=== PATIENT | female | born 1955 | race Caucasian/White ===

== ENCOUNTER → 2017-03-28 | Outpatient (CLI) | payer OTHER ==
--- NOTE | 2017-03-28 13:37 | MM ---
Reason for exam: screening (asymptomatic). Last mammogram was performed 4 years and 2 months ago. History: Patient is postmenopausal and is nulliparous. Family history of breast cancer in maternal cousin at age 42. Taking estrogen for 5 years. Physical Findings: A clinical breast exam by your physician is recommended on an annual basis and results should be correlated with mammographic findings. MG 3D Screening Mammo W/Cad Bilateral CC and MLO view(s) were taken. Prior study comparison: January 13, 2013, [facility] DIGITAL RIGHT MAMMOGRAM w/CAD. January 08, 2013, bilateral digital screening mammo w/CAD. The breast tissue is heterogeneously dense. This may lower the sensitivity of mammography. Finding: There are typically benign calcifications in both breasts. No significant changes in finding since January 13, 2013 and January 08, 2013. ASSESSMENT: Benign, BI-RAD 2 RECOMMENDATION: Routine screening mammogram of both breasts in 1 year.
== END | disposition home or self-care (01) ==
LOC: RADMAMWWP 09:45
PROVIDERS: ATTEND Obstetrics & Gynecology
DX: Z12.31 Encounter for screening mammogram for malignant neoplasm of breast (principal)
CPT/HCPCS: 77063; G0202

== ENCOUNTER → 2018-04-09 | Outpatient (CLI) | payer OTHER ==
--- NOTE | 2018-04-17 10:47 | MM ---
Reason for exam: screening (asymptomatic). Last mammogram was performed 1 year ago. History: Patient is postmenopausal and is nulliparous. Family history of breast cancer in maternal cousin at age 42. Taking estrogen for 5 years. Physical Findings: A clinical breast exam by your physician is recommended on an annual basis and results should be correlated with mammographic findings. MG 3D Screening Mammo W/Cad Bilateral CC and MLO view(s) were taken. Prior study comparison: March 28, 2017, bilateral MG 3d screening mammo w/cad. January 13, 2013, [facility] DIGITAL RIGHT MAMMOGRAM w/CAD. The breast tissue is heterogeneously dense. This may lower the sensitivity of mammography. There is a new right upper outer quadrant middle depth 6mm mass, low density. No suspicious abnormality on the left breast. ASSESSMENT: Incomplete: need additional imaging evaluation, BI-RAD 0 RECOMMENDATION: Special view mammogram of the right breast. If lesion persists on supplemental views, image directed ultrasound is recommended. [facility] will attempt to contact patient to return for supplemental views and ultrasound if indicated.
== END | disposition home or self-care (01) ==
LOC: RADMAMWWP 14:11
PROVIDERS: ATTEND Obstetrics & Gynecology
DX: Z12.31 Encounter for screening mammogram for malignant neoplasm of breast (principal)
CPT/HCPCS: 77063; 77067

== ENCOUNTER → 2018-04-22 | Outpatient (CLI) | payer OTHER ==
--- NOTE | 2018-04-23 09:07 | MM ---
Reason for exam: additional evaluation requested from abnormal screening. Last mammogram was performed less than 1 month ago. History: Patient is postmenopausal and is nulliparous. Family history of breast cancer in maternal cousin at age 42. Taking estrogen for 5 years. Physical Findings: Nurse did not find any significant physical abnormalities on exam. MG 3D Work Up W/Cad RT CC, MLO, and LM view(s) were taken of the right breast. Prior study comparison: April 09, 2018, bilateral MG 3d screening mammo w/cad. March 28, 2017, bilateral MG 3d screening mammo w/cad. January 13, 2013, [facility] DIGITAL RIGHT MAMMOGRAM w/CAD. The breast tissue is heterogeneously dense. This may lower the sensitivity of mammography. Finding: There is a 8 mm circumscribed oval mass in the upper outer quadrant, anterior middle position of the right breast persists on additional views. New finding since April 09, 2018, March 28, 2017, and January 13, 2013. These results were verbally communicated with the patient and result sheet given to the patient on 04/22/18. ASSESSMENT: Incomplete: need additional imaging evaluation, BI-RAD 0 RECOMMENDATION: Ultrasound of the right breast.
--- NOTE | 2018-04-23 09:09 | USB ---
Reason for exam: additional evaluation requested from abnormal screening. History: Patient is postmenopausal and is nulliparous. Family history of breast cancer in maternal cousin at age 42. Taking estrogen for 5 years. US Breast Workup Limited RT Right limited breast ultrasound including focal area of concern, retroareolar and axilla demonstrates a 0.7 x 0.6 x 0.3cm oval, cystic lesion at 9 o'clock. These results were verbally communicated with the patient and result sheet given to the patient on 04/22/18. ASSESSMENT: Benign, BI-RAD 2 RECOMMENDATION: Return to routine screening mammogram schedule for both breasts.
== END ==
LOC: RADMAMWWP 15:27
PROVIDERS: ATTEND Obstetrics & Gynecology
DX: R92.8 Other abnormal and inconclusive findings on diagnostic imaging of breast (principal)
CPT/HCPCS: 77061; 77065

== ENCOUNTER → 2019-04-22 | Outpatient (CLI) | payer OTHER ==
--- NOTE | 2019-04-22 11:05 | BD ---
EXAMINATION TYPE: Axial Bone Density DATE OF EXAM: 04/22/2019 COMPARISON: NONE CLINICAL HISTORY: Z 13.820 Height: 68.5 Weight: 179.3 FRAX RISK QUESTIONS: Alcohol (3 or more units per day): no Family History (Parent hip fracture): no Glucocorticoids (More than 3mos): no (Ex: prednisone, prednisolone, methylprednisolone, dexamethasone, and hydrocortisone). History of Fracture in Adulthood: no Secondary Osteoporosis: 1. Type 1 Diabetes: no 2. Hyperthyroidism: no 3. Menopause before 45: no 4. Malnutrition: no 5. Chronic liver disease: no Rheumatoid Arthritis: no Current Tobacco Use: no RISK FACTORS HISTORY OF: Family History of Osteoporosis: no Active: yes Diet low in dairy products/other sources of calcium: no Postmenopausal woman: age 50 MEDICATIONS: x2 blood pressure meds, lipitor Additional History: EXAM MEASUREMENTS: Bone mineral densitometry was performed using the [employer]. Bone mineral density as measured about the Lumbar spine is: ----- L1-L4(G/cm2): 1.165 T Score Values are as follows: ----- L2: 0.2 ----- L3: 0.2 ----- L4: -0.3 ----- L1-L4: -0.1 Bone mineral density : baseline Bone mineral density about the R hip (g/cm2): 1.039 Bone mineral density about the L hip (g/cm2): 1.057 T Score values are as follows: -----R Neck: 0.0 -----L Neck: 0.1 -----R Total: 0.4 -----L Total: 0.4 Bone mineral density : baseline IMPRESSION: Normal (Values between +1 and -1 indicate normal bone mass). Consider repeating this study in 5 year s or sooner if there is some new clinical indication. NOTE: T-SCORE=SD OF THE YOUNG ADULT MEAN.
--- NOTE | 2019-04-23 08:04 | MM ---
Reason for exam: screening (asymptomatic). Last mammogram was performed 1 year ago. History: Patient is postmenopausal and is nulliparous. Family history of breast cancer in maternal cousin at age 42. Taking estrogen for 5 years. Physical Findings: A clinical breast exam by your physician is recommended on an annual basis and results should be correlated with mammographic findings. MG 3D Screening Mammo W/Cad Bilateral CC and MLO view(s) were taken. Prior study comparison: April 22, 2018, right breast MG 3d work up w/cad RT. April 09, 2018, bilateral MG 3d screening mammo w/cad. The breast tissue is heterogeneously dense. This may lower the sensitivity of mammography. There is a stable right upper outer quadrant middle depth mass. No suspicious abnormality. No significant changes when compared with prior studies. ASSESSMENT: Benign, BI-RAD 2 RECOMMENDATION: Routine screening mammogram of both breasts in 1 year.
== END | disposition home or self-care (01) ==
LOC: RADMAMWWP 08:43
PROVIDERS: ATTEND Obstetrics & Gynecology
DX: Z12.31 Encounter for screening mammogram for malignant neoplasm of breast (principal); Z13.820 Encounter for screening for osteoporosis
CPT/HCPCS: 77063; 77067; 77080

== ENCOUNTER → 2019-08-14 | Outpatient (CLI) | payer OTHER ==
--- NOTE | 2019-08-14 15:54 | XR ---
EXAMINATION TYPE: XR knee complete LT DATE OF EXAM: 08/14/2019 COMPARISON: None HISTORY: Pain TECHNIQUE: 3 view left knee FINDINGS: No acute displaced fractures are evident. Soft tissues appear normal. No joint effusion is evident. A small medial femoral condylar spurs present. IMPRESSION: 1. No acute osseous abnormality. 2. Minimal medial compartment degenerative changes
== END | disposition home or self-care (01) ==
LOC: RADXRWHC 12:28
PROVIDERS: ATTEND Family Medicine
DX: M17.12 Unilateral primary osteoarthritis, left knee (principal)

== ENCOUNTER → 2019-11-06 | Outpatient (CLI) | payer OTHER ==
--- NOTE | 2019-11-06 14:15 | XR ---
EXAMINATION TYPE: XR chest 2V DATE OF EXAM: 11/06/2019 COMPARISON: None INDICATION: Cough TECHNIQUE: Frontal and lateral views of the chest are obtained. FINDINGS: The heart size is normal. The pulmonary vasculature is normal. The lungs are clear. IMPRESSION: 1. No acute pulmonary process.
== END | disposition home or self-care (01) ==
LOC: RADXRMAIN 13:58
PROVIDERS: ATTEND Nurse Practitioner Family
DX: R05 Cough (principal); R06.2 Wheezing; R09.89 Other specified symptoms and signs involving the circulatory and respiratory systems
CPT/HCPCS: 71046

== ENCOUNTER → 2020-02-12 | Outpatient (CLI) | payer OTHER | END | disposition home or self-care (01) | LOC: LABWHC1 09:39 | PROVIDERS: ATTEND Family Medicine | DX: R05 Cough (principal) | CPT/HCPCS: 87635 ==

== ENCOUNTER → 2020-06-13 | Outpatient (CLI) | payer OTHER ==
--- NOTE | 2020-06-13 15:29 | MR ---
EXAMINATION TYPE: MR knee LT wo con DATE OF EXAM: 06/13/2020 COMPARISON: Plain film 05/06/2020 HISTORY: Left knee pain TECHNIQUE: Multiplanar, multisequence imaging of the left knee is performed without IV contrast. FINDINGS: MEDIAL MENISCUS: Anterior and posterior horns are intact without tear. LATERAL MENISCUS: Anterior and posterior horns are intact without tear. CRUCIATE LIGAMENTS: The anterior and posterior cruciate ligaments are intact and unremarkable. COLLATERAL LIGAMENTS: The medial collateral ligament and lateral collateral ligament complex are inta ct and unremarkable. EXTENSOR MECHANISM: Visualized quadriceps and patellar tendons are intact. EFFUSION: Minimal joint effusion POPLITEAL CYST: No popliteal/martinez cyst. TRICOMPARTMENT SPACES: Joint space loss present in the medial compartment. CARTILAGE: Grade IV chondromalacia present in the medial compartment. Within the posterior lateral co mpartment suspect there is grade 3 to grade IV chondromalacia. Grade IV chondromalacia present at the posterior patella. BONE MARROW SIGNAL: Subchondral geode formation present in the proximal tibia posteriorly and medial femoral condyle, reactive marrow signal changes are also present in the medial femoral condyle, proxi mal tibia posteriorly and posterior patella OTHER: Subcutaneous edema changes are present anterior to the patellar tendon. Marginal spurring pre sent in the medial lateral compartments, patellofemoral joint IMPRESSION: Osteoarthritis. Joint effusion.
== END | disposition home or self-care (01) ==
LOC: RADMRIMAIN 10:20
PROVIDERS: ATTEND Orthopaedic Surgery
DX: M17.12 Unilateral primary osteoarthritis, left knee (principal)

== ENCOUNTER → 2020-08-04 | Outpatient (CLI) | payer OTHER ==
[2020-08-04 12:27] LABS: Potassium 4.6 mmol/L (3.5-5.1)
== END | disposition home or self-care (01) ==
LOC: LABPAT 11:15
PROVIDERS: ATTEND Orthopaedic Surgery
DX: M23.92 Unspecified internal derangement of left knee (principal)
CPT/HCPCS: 36415; 80051; 93005

== ENCOUNTER 2020-09-01 11:14 | Day surgery (SDC) | payer OTHER ==
[2020-08-30 14:28] VITALS: BMI 25.1
--- NOTE | 2020-08-31 20:13 | HP ---
HISTORY AND PHYSICAL DATE OF SURGERY: 09/01/2020 Cindy Núñez is a 65-year-old patient seen with progressive left knee pain. We discussed options. She elected to proceed with left knee arthroscopy. Consent was obtained. PAST MEDICAL HISTORY: Hypertension, hyperlipidemia, osteoarthritis. PAST SURGICAL HISTORY: Oophorectomy. DAILY MEDICATIONS: Prilosec, Ambien, Lipitor, Lotrel. ALLERGIES: SULFA. SOCIAL HISTORY: Denies tobacco use. PHYSICAL EXAMINATION: Evaluation of the left knee range of motion is 0-130. Mild effusion. Tenderness medial joint line. Positive medial Luly's. Ligaments stable. Crepitus medial patellofemoral compartments on range of motion. Hip rotation without pain. Distal neurovascular exam intact. RADIOGRAPHS: Left knee radiographs reveal osteoarthritic changes. Left knee MRI revealed osteoarthritic changes and joint effusion. IMPRESSION: 1. Internal derangement of the left knee with meniscal tear versus osteochondral tear. 2. Left knee osteoarthritis. 3. Hyperlipidemia. 4. Hypertension. PLAN: Left knee arthroscopy with partial meniscectomy versus chondroplasty and debridement. MMODL / IJN: [id number] /
[~2020-09-01 11:14] MED LIST: DEXAMETHASONE SOD PHOSPHATE 4 MG/ML 1 ML VIAL IV ONE; LACTATED RINGERS 1,000 ML IV SCH; LIDOCAINE 1% (10MG/ML) FOR IV START INTRADERMA PRN; MIDAZOLAM 2 MG/2 ML VIAL IV PRN; ONDANSETRON 4 MG/2 ML VIAL IVP ONE
[2020-09-01] MEDS ORDERED: KETOROLAC 15 MG/ML 1 ML VIAL ONE (12:45)
[2020-09-01] MEDS ORDERED: PROPOFOL 10 MG/ML 20 ML VIAL IV ONE (12:45)
[2020-09-01] MEDS ORDERED: LIDOCAINE 1% INJ 10MG/ML (20 ML MDV) ONE (12:45)
[2020-09-01] MEDS ORDERED: fentaNYL (PF) 50 MCG/ML 2 ML AMP ONE (12:45)
[2020-09-01] MEDS ORDERED: BUPIVACAINE (PF) 0.25% 30 ML VIAL INTRAARTIC ONE (12:52)
--- NOTE | 2020-09-01 13:31 | P.OP ---
Date of Procedure: 09/01/20 Preoperative Diagnosis: Internal derangement left knee Postoperative Diagnosis: 1. Tear medial meniscus left knee 2. Grade 2/3 chondromalacia medial femoral condyle left knee 3. Grade 2/3 chondromalacia patella left knee 4. Reactive synovitis medial, lateral and suprapatellar compartments left knee Procedure(s) Performed: 1. Arthroscopic partial medial meniscectomy left knee 2. Arthroscopic chondroplasty medial femoral condyle left knee 3. Arthroscopic chondroplasty patella left knee 4. Arthroscopic partial synovectomy medial, lateral and suprapatellar compartments left knee Anesthesia: DUSTINA, local Surgeon: Hima Meza Estimated Blood Loss (ml): 7 Pathology: none sent Condition: stable Disposition: PACU Indications for Procedure: 65-year-old patient seen with progressive left knee pain. After treatment options were discussed, she elected to proceed with arthroscopy. Operative Findings: See description of procedure Description of Procedure: Patient was taken to the operative suite. Patient underwent a general anesthetic by the department of anesthesia. Patient was given preoperative antibiotics. The left lower extremity was placed in a well-padded arthroscopic leg greenwood. The left leg was prepped and draped in the normal sterile orthopedic fashion. A lateral parapatellar and suprapatellar incision was made. Trochars were inserted. Arthroscopy was initiated. Suprapatellar pouch reve aled diffuse thick reactive synovitis. The patellofemoral joint appeared to articulate congruently. There was grade 2/3 chondromalacia of the patella with some osteochondral flap tears present. The scope was guided into the medial gutter. No loose bodies or plica were identified. The scope was then guided into the medial compartment. A medial parapatellar incision was made. Trocar inserted followed by probe. There was a radial tear posterior horn medial meniscus. There were grade 2/3 chondromalacia changes of the medial femoral condyle with some osteochondral flap tears present. There was thick reactive synovitis anteriorly. I performed a partial medial meniscectomy getting down to stable meniscal tissue. I performed a chondroplasty of the medial femoral condyle getting down to stable osteochondral tissue. I performed a partial synovectomy decompressing the reactive synovitis. The residual meniscus was stable. The residual osteochondral surface of the medial femoral condyle was stable. There was good decompression of the synovitis. Scope and probe were then guided into the intercondylar notch. Cruciates were identified, probed and found to be stable. The scope and probe were then guided into lateral compartment. To meniscus was probed and found to be stable. There was no significant chondromalacia involving lateral compartment. There was thick reactive synovitis anteriorly. I introduced a motorized shaver and performed a partial synovectomy. There was good decompression of the synovitis. The scope was in guided back into the suprapatellar compartment. I introduced a motorized shaver into the suprapatellar compartment. I debrided some piecemeal fragments of meniscus I encountered. I performed a chondroplasty of the patella gained down to stable osteochondral tissue. I performed a partial synovectomy decompressing reactive synovitis. The shaver was removed. The residual osteochondral surface of patella was stable. There was good decompression of synovitis. I took one more look on the entire knee, no residual debris. Instruments were now removed from the joint. The joint was infiltrated with .25% Marcaine. Steri-Strips were applied to the portal sites. Sterile dressings were applied. The patient was placed into a COLLEEN hose. No tourniquet was utilized. The patient was awakened, transferred to a bed and taken to recovery stable satisfactory condition.
[2020-09-01 13:38] VITALS: TEMP 97.1
[2020-09-01] MEDS: HYDROmorphone 0.5 MG/0.5 ML SYRINGE IVP PRN ×2 (13:41→13:54)
[2020-09-01] MEDS ORDERED: LACTATED RINGERS 1,000 ML IV ONE (13:44)
[2020-09-01 14:17] VITALS: RESP 16
[2020-09-01 15:07] VITALS: BP 139/86; PULSE 78
== END 2020-09-01 15:30 | disposition home or self-care (01) ==
LOC: OR 11:14
PROVIDERS: ATTEND Orthopaedic Surgery
DX: M23.204 Derangement of unspecified medial meniscus due to old tear or injury, left knee (principal); M22.42 Chondromalacia patellae, left knee; M65.862 Other synovitis and tenosynovitis, left lower leg; K21.9 Gastro-esophageal reflux disease without esophagitis; I10 Essential (primary) hypertension; E78.5 Hyperlipidemia, unspecified; M19.90 Unspecified osteoarthritis, unspecified site; Z79.899 Other long term (current) drug therapy; Z88.2 Allergy status to sulfonamides; Z98.890 Other specified postprocedural states
CPT/HCPCS: 29881; J2250; J1100; J2405; J2001; J3010; J1885; J2704; J1170

== ENCOUNTER → 2021-06-06 | Outpatient (CLI) | payer OTHER ==
--- NOTE | 2021-06-08 09:14 | MM ---
Reason for exam: screening (asymptomatic). Last mammogram was performed 1 year and 1 month ago. History: Patient is postmenopausal and is nulliparous. Family history of breast cancer in maternal cousin at age 42. Taking estrogen for 5 years. Physical Findings: A clinical breast exam by your physician is recommended on an annual basis and results should be correlated with mammographic findings. MG 3D Screening Mammo W/Cad Bilateral CC and MLO view(s) were taken. Prior study comparison: May 10, 2020, bilateral MG 3d screening mammo w/cad. April 22, 2019, bilateral MG 3d screening mammo w/cad. The breast tissue is heterogeneously dense. This may lower the sensitivity of mammography. No significant changes when compared with prior studies. ASSESSMENT: Negative, BI-RAD 1 RECOMMENDATION: Routine screening mammogram of the right breast in 1 year.
== END | disposition home or self-care (01) ==
LOC: RADMAMWWP 13:07
PROVIDERS: ATTEND Obstetrics & Gynecology
DX: Z12.31 Encounter for screening mammogram for malignant neoplasm of breast (principal); Z78.0 Asymptomatic menopausal state; Z80.3 Family history of malignant neoplasm of breast
CPT/HCPCS: 77063; 77067

== ENCOUNTER → 2022-03-14 | Outpatient (CLI) | payer MEDICARE, BC ==
--- NOTE | 2022-03-14 10:34 | XR ---
EXAMINATION TYPE: XR forearm LT DATE OF EXAM: 03/14/2022 COMPARISON: None HISTORY: Calcification left forearm, bump on forearm for several months TECHNIQUE: 2 view left forearm FINDINGS: No acute osseous abnormality is evident. No acute fractures are evident. There is a soft tissue swelling over the proximal forearm on the lateral projection. Note is made of advanced degenerative change at the carpal metacarpal junction of the thumb. IMPRESSION: 1. Minimal soft tissue swelling along the dorsal proximal forearm lateral projection. 2. No acute osseous abnormality.
== END | disposition home or self-care (01) ==
LOC: RADXRMAIN 09:53
PROVIDERS: ATTEND Family Medicine
DX: M79.89 Other specified soft tissue disorders (principal)

== ENCOUNTER → 2022-06-20 | Outpatient (CLI) | payer MEDICARE, BC ==
--- NOTE | 2022-06-29 09:52 | MM ---
Reason for Exam: Screening (asymptomatic). Last mammogram was performed 1 year(s) and 1 month(s) ago. Patient History: Menarche at age 16. Patient has no children. Left ovary removed at age 50. Right ovary removed at age 50. Postmenopausal. Patient used Estrogen for 5 years. Maternal cousin had breast cancer, age 42. Risk Values: Marissa 5 year model risk: 1.7%. NCI Lifetime model risk: 6.3%. Prior Study Comparison: 04/22/2019 Bilateral Screening Mammogram, [facility]. 05/10/2020 Bilateral Screening Mammogram, [facility]. 06/06/2021 Bilateral Screening Mammogram, [facility]. Tissue Density: The breast tissue is heterogeneously dense. This may lower the sensitivity of mammography. Findings: Analyzed By CAD. There is no suspicious group of microcalcifications or new suspicious mass in either breast. Overall Assessment: Negative, BI-RAD 1 Management: Screening Mammogram of both breasts in 1 year. A clinical breast exam by your physician is recommended on an annual basis and results should be correlated with mammographic findings. Electronically signed and approved by: Alex Kendall M.D. Radiologis
== END | disposition home or self-care (01) ==
LOC: RADMAMWWP 10:06
PROVIDERS: ATTEND Family Medicine
DX: Z12.31 Encounter for screening mammogram for malignant neoplasm of breast (principal); Z78.0 Asymptomatic menopausal state; Z80.3 Family history of malignant neoplasm of breast
CPT/HCPCS: 77063; 77067

== ENCOUNTER 2022-09-07 11:49 | Emergency (ER) | payer MEDICARE, BC ==
[2022-09-07 12:34] VITALS: BP 156/97; PULSE 80; RESP 16; TEMP 98.2
--- NOTE | 2022-09-07 12:57 | XR ---
EXAMINATION TYPE: XR chest 2V DATE OF EXAM: 09/07/2022 COMPARISON: 11/06/2019 HISTORY: 67-year-old female with cough TECHNIQUE: PA and lateral views FINDINGS: The cardiomediastinal silhouette, aorta, and pulmonary vasculature are within normal limits. Lungs an d pleural spaces are clear. IMPRESSION: No acute cardiopulmonary process.
--- NOTE | 2022-09-07 13:44 | ED ---
URI HPI - General Chief Complaint: Upper Respiratory Infection Stated Complaint: Congestion,wants Chest Xray Time Seen by Provider: 09/07/22 13:26 Source: patient Mode of arrival: ambulatory Limitations: no limitations - History of Present Illness Initial Comments: Patient is a 67-year-old female presenting with chief complaint of cough. Patient has had a productive cough for several weeks. Patient was initially being treated with Z-Uzair, she was recently switched to Levaquin by her PCP. States that cough wakes her up at night. She was having congestion and sinus pressure that has since dissipated. No difficulty breathing or chest pain. No difficulty swallowing. No sore throat. No nausea, vomiting, abdominal pain. No palpitations or weakness. No dizziness or lightheadedness. - Related Data Home Medications Medication Instructions Recorded Confirmed Cranberry Conc/C/Bacill Coag 1 each PO DAILY 02/15/15 09/01/20 [Cranberry Tablet] LORazepam [Ativan] 0.5 mg PO DAILY PRN 02/15/15 09/01/20 Multivitamins, Thera [Theragran] 1 each PO DAILY 02/15/15 09/01/20 Omeprazole [PriLOSEC] 20 mg PO AC-BRKFST 02/15/15 09/01/20 Propranolol LA [Inderal LA] 60 mg PO DAILY 02/15/15 09/01/20 Zolpidem Tartrate [Ambien Cr] 12.5 mg PO HS PRN 02/15/15 09/01/20 Atorvastatin [Lipitor] 80 mg PO DAILY 08/30/20 09/01/20 Calcium Carbonate/Vitamin D3 1 each PO BID 08/30/20 09/01/20 [Calcium 600 mg-Vit D3 10Mcg (400 Unit)] Grapeseed 1 dose PO DAILY 08/30/20 09/01/20 [place]-3/Dha/Epa/Fish Oil [Fish Oil 1 each PO BID 08/30/20 09/01/20 500 mg Softgel] Ubidecarenone [Co Q-10] 100 mg PO DAILY 08/30/20 09/01/20 amLODIPine BESYLATE/BENAZEPRIL 1 cap PO DAILY 08/30/20 09/01/20 [Lotrel 10-20 MG] Previous Rx's Medication Instructions Recorded Cephalexin [Keflex] 500 mg PO Q12HR 10 Days #30 cap 09/01/20 Hydrocodone/Acetaminophen [[place] 1 each PO Q6HR PRN #12 tab 09/01/20 5-325] Albuterol Sulfate [Albuterol 1 puff PO Q4-6H PRN #8.5 gm 09/07/22 Sulfate Hfa] Allergies Allergy/AdvReac Type Severity Reaction Status Date / Time Sulfa (Sulfonamide Allergy Unknown Verified 09/07/22 12:31 Antibiotics) Review of Systems ROS Statement: Those systems with pertinent positive or pertinent negative responses have been documented in the HPI. ROS Other: All systems not noted in ROS Statement are negative. Past Medical History Past Medical History: GERD/Reflux, Hypertension Additional Past Medical History / Comment(s): "hx pounding heart beat", History of Any Multi-Drug Resistant Organisms: None Reported Past Surgical History: Tonsillectomy Additional Past Surgical History / Comment(s): oophorectomy Past Anesthesia/Blood Transfusion Reactions: No Reported Reaction Past Psychological History: No Psychological Hx Reported Past Alcohol Use History: Occasional Past Drug Use History: None Reported - Past Family History Mother Family Medical History: No Reported History General Exam Limitations: no limitations General appearance: alert, in no apparent distress Head exam: Present: atraumatic, normocephalic, normal inspection Eye exam: Present: normal appearance Neck exam: Present: normal inspection Respiratory exam: Present: normal lung sounds bilaterally. Absent: respiratory distress, wheezes, rales, rhonchi, stridor Cardiovascular Exam: Present: regular rate, normal rhythm, normal heart sounds. Absent: systolic murmur, diastolic murmur, rubs, gallop, clicks Neurological exam: Present: alert, oriented X3, CN II-XII intact Psychiatric exam: Present: normal affect, normal mood Skin exam: Present: warm, dry, intact, normal color. Absent: rash Course Vital Signs 09/07/22 12:31 Temperature 98.2 F Pulse Rate 80 Respiratory 16 Rate Blood Pressure 156/97 O2 Sat by Pulse 98 Oximetry Medical Decision Making - Medical Decision Making Patient is a 67-year-old female presenting with chief complaint of cough. Patient has had a cough for several weeks, she was treated with Z-Uzair and then was switched over to Levaquin by her PCP. She is concerned that the cough is not going away and wants a chest x-ray to rule out pneumonia. On examination heart and lungs are clear to auscultation. Patient is area adequately coughing, breathing is nonlabored. Chest x-ray shows no acute process. Patient is offered swabs for influenza and Covid, due to the length of her symptoms she is not concerned for these processes at this time. Patient is prescribed albuterol inhaler for her symptoms. Continue taking medication as prescribed by your PCP. Follow-up with PCP. Report back to ER with any new or worsening symptoms. Discussed return parameters and answered all questions. Patient conveyed verbal understanding and agreed to the plan. I discussed this case in detail with my attending Dr. Thomas Disposition Clinical Impression: Bronchitis Disposition: HOME SELF-CARE Condition: Good Instructions (If sedation given, give patient instructions): Acute Bronchitis (ED) Additional Instructions: Follow-up with PCP. Report back to ER with any new or worsening symptoms. Take medication as prescribed. Prescriptions: Albuterol Sulfate [Albuterol Sulfate Hfa] 1 puff PO Q4-6H PRN #8.5 gm PRN Reason: Cough Is patient prescribed a controlled substance at d/c from ED?: No Referrals: Angel Wasserman DO [Primary Care Provider] - 1-2 days Time of Disposition: 13:43
== END 2022-09-07 14:05 | disposition home or self-care (01) ==
LOC: EC 11:49
DX: J40 Bronchitis, not specified as acute or chronic (principal); K21.9 Gastro-esophageal reflux disease without esophagitis; I10 Essential (primary) hypertension; Z88.2 Allergy status to sulfonamides; Z79.899 Other long term (current) drug therapy
CPT/HCPCS: 71046; 99283

== ENCOUNTER → 2023-06-27 | Outpatient (CLI) | payer MEDICARE, BC ==
--- NOTE | 2023-06-28 08:58 | MM ---
Reason for Exam: Screening (asymptomatic). Last screening mammogram was performed 12 month(s) ago. Patient History: Menarche at age 16. Patient has no children. Left ovary removed at age 50. Right ovary removed at age 50. Postmenopausal. Patient used Estrogen for 5 years. Maternal cousin had breast cancer, age 42. Risk Values: Marissa 5 year model risk: 1.7%. NCI Lifetime model risk: 6.1%. Prior Study Comparison: 05/10/2020 Bilateral Screening Mammogram, [facility]. 06/06/2021 Bilateral Screening Mammogram, [facility]. 06/20/2022 Bilateral MG 3D screening mammo w/cad, [facility]. Tissue Density: The breast tissue is heterogeneously dense. This may lower the sensitivity of mammography. Findings: Analyzed By CAD. There is no suspicious group of microcalcifications or new suspicious mass in either breast. Overall Assessment: Benign, BI-RAD 2 Management: Screening Mammogram of both breasts in 1 year. . Patient should continue monthly self-breast exams. A clinical breast exam by your physician is recommended on an annual basis. This exam should not preclude additional follow-up of suspicious palpable abnormalities. Note on Marissa scores and lifetime risk: 1. A Marissa score greater than 3% is considered moderate risk. If this is the case, consider specialist referral to assess eligibility for a risk reducing agent. 2. If overall lifetime risk for the development of breast cancer is 20% or higher, the patient may qualify for future screening with alternating mammogram and breast MRI. Electronically signed and approved by: Alex Kendall M.D. Radiologis
== END | disposition home or self-care (01) ==
LOC: RADMAMWWP 09:27
PROVIDERS: ATTEND Family Medicine
DX: Z12.31 Encounter for screening mammogram for malignant neoplasm of breast (principal); Z78.0 Asymptomatic menopausal state; Z80.3 Family history of malignant neoplasm of breast
CPT/HCPCS: 77063; 77067

== ENCOUNTER → 2023-10-04 | Outpatient (CLI) | payer MEDICARE, BC ==
--- NOTE | 2023-10-04 11:52 | CT ---
EXAMINATION: CT ABDOMEN AND PELVIS WITHOUT IV CONTRAST DATE OF EXAMINATION: 11/04/2022. COMPARISON: None available. INDICATION: Pelvic pain and urinary tract infection. PROCEDURE: Axial CT of the abdomen and pelvis was performed with sagittal and coronal reformatted i mages without contrast enhancement. The exam is limited because some types of pathology may not be ad equately demonstrated due to lack of contrast enhancement. CT dose lowering techniques were used, to include: automated exposure control, adjustment for patient size, and/or use of iterative reconstruct ion. FINDINGS: LOWER CHEST : The visualized lung bases are clear. There are no pleural or pericardial effusions. ABDOMEN: Liver and Biliary system: Normal. Adrenal glands: Normal. Kidneys and ureters: There are no renal stones or hydronephrosis. No ureteral stones are present.. Spleen: Normal. Pancreas: Normal. Gallbladder: Normal. Lymph nodes, Peritoneum and mesentery: There is no mesenteric or retroperitoneal lymphadenopathy. Gastrointestinal tract: There are no dilated loops of bowel or free intraperitoneal air. . The appe ndix is normal. There is moderate to significant diffuse colonic diverticulosis without evidence of d iverticulitis. Aorta/IVC: There is mild vascular calcification throughout the abdominal aorta without evidence of aneurysmal dilation.. IVC normal. Abdominal wall: Normal. PELVIS: Fluid: There is no free fluid in the pelvis. Lymph Nodes: There is no pelvic or inguinal lymphadenopathy.. Urinary bladder: Normal. BONES: There are bilateral pars interarticular defects at L5 with no listhesis. There are no acute o sseous abnormalities. ADDITIONAL SIGNIFICANT FINDINGS: None. IMPRESSION: 1. No renal stones or hydronephrosis.. 2. No bowel obstruction or appendicitis. 3. Diverticulosis without evidence of diverticulitis.
== END | disposition home or self-care (01) ==
LOC: RADCTMAIN 11:13
PROVIDERS: ATTEND Family Medicine
DX: K57.30 Diverticulosis of large intestine without perforation or abscess without bleeding (principal); N20.0 Calculus of kidney; N39.0 Urinary tract infection, site not specified
CPT/HCPCS: 74176

== ENCOUNTER → 2024-07-10 | Outpatient (CLI) | payer MEDICARE ==
--- NOTE | 2024-07-12 21:50 | MM ---
Reason for Exam: Screening (asymptomatic). Last screening mammogram was performed 12 month(s) ago. Patient History: Menarche at age 16. Patient has no children. Left ovary removed at age 50. Right ovary removed at age 50. Postmenopausal. Patient used Estrogen for 5 years. Maternal cousin had breast cancer, age 42. Risk Values: Marissa 5 year model risk: 1.7%. NCI Lifetime model risk: 5.9%. Prior Study Comparison: 06/06/2021 Bilateral Screening Mammogram, [facility]. 06/20/2022 Bilateral MG 3D screening mammo w/cad, [facility]. 06/27/2023 Bilateral MG 3D screening mammo w/cad, [facility]. Tissue Density: The breasts are extremely dense, which lowers the sensitivity of mammography. Findings: Analyzed By CAD. The pattern is symmetrical. No significant interval change No suspicious groups of microcalcifications, spiculated or lobular masses, architectural distortion or other secondary signs of malignancy are mammographically apparent. Overall Assessment: Benign, BI-RAD 2 Management: Screening Mammogram of both breasts in 1 year. A negative mammogram report should not preclude additional follow up of suspicious palpable abnormalities. Patient should continue monthly self breast exam. A clinical breast exam by your physician is recommended on an annual basis and results should be correlated with mammographic findings. Note on Marissa scores and lifetime risk: 1. A Marissa score greater than 3% is considered moderate risk. If this is the case, consider specialist referral to assess eligibility for a risk reducing agent. 2. If overall lifetime risk for the development of breast cancer is 20% or higher, the patient may qualify for future screening with alternating mammogram and breast MRI. [facility], , 07/12/2024 9:47 PM. Electronically signed and approved by: Nikos Mack D.O. Radiologis
== END | disposition home or self-care (01) ==
LOC: RADMAMWWP 09:05
PROVIDERS: ATTEND Family Medicine
CPT/HCPCS: 77063; 77067

== ENCOUNTER → 2024-09-29 | Outpatient (CLI) | payer MEDICARE ==
--- NOTE | 2024-09-29 10:05 | CT ---
EXAMINATION TYPE: CT sinus wo con DATE OF EXAM: 09/29/2024 COMPARISON: CLINICAL INDICATION: Female, 69 years old with history of J32.9 chronic sinusitis; PHH, Chronic sinus itis TECHNIQUE: CT scan of the sinuses is performed without contrast, axial images are obtained, coronal r eformatted images are also reviewed. CT DLP: 630.[address] CTDI: mGy Automated exposure control for dose reduction was used. FINDINGS: The paranasal sinuses including the frontal, ethmoid, sphenoid, and maxillary sinuses bilaterally are well-aerated with a tiny mucous retention cyst or polyp in the left maxillary sinus and mild ethmoid mucosal thickening. No air-fluid levels. The ostiomeatal complex is patent bilaterally on the coron al images. Visualized portion of mastoid air cells show no abnormal opacification. The globes are intact bilate rally. Slight nasal septal deviation. There is a small epidermal soft tissue nodule overlying the le ft frontal soft tissues. IMPRESSION: 1. Mild chronic sinusitis. 2. Correlate for left frontal epidermal soft tissue nodule\Skin lesion measuring 1 cm. [facility], , 09/29/2024 10:02 AM
== END | disposition home or self-care (01) ==
LOC: RADCTMAIN 08:49
PROVIDERS: ATTEND Otolaryngology
DX: J32.9 Chronic sinusitis, unspecified (principal); L98.8 Other specified disorders of the skin and subcutaneous tissue
CPT/HCPCS: 70486

== ENCOUNTER 2025-04-10 08:03 | Emergency (ER) | payer MEDICARE ==
[2025-04-10 08:09] VITALS: BP 177/93; PULSE 102; RESP 18; TEMP 98.2
--- NOTE | 2025-04-10 08:53 | ED ---
Back Pain HPI - General Chief Complaint: Back Pain/Injury Stated Complaint: Back Pain/SOB Time Seen by Provider: 04/10/25 08:53 Source: patient, family, RN notes reviewed Limitations: no limitations - History of Present Illness Initial Comments: 70-year-old female presented the ER for evaluation of thoracic back pain. Patient reports on she started to experience a sore cramping left-sided subscapular back pain. She states it would frequently "spasm". She has been icing area along with taking [id number] ibuprofen and Tylenol without relief of her symptoms. Patient reports she was seen by PCP yesterday and diagnosed with a muscle spasm. Patient received IM steroids and prescribed prednisone and Flexeril. She states she has been taking these as prescribed and has no improvement of symptoms. Patient reports the pain has also spread to right back as well. She states the pain is limiting her ability to take a deep breath and she feels short of breath. Pain comes and "spasms" and is worse with movement. She denies any chest pain, dizziness, lightheadedness. Patient does admit to nausea but contributes this to the pain. She denies a history of PEs or DVTs. No blood thinner use. Patient denies smoking or recent travel. No calf pain or swelling. - Related Data Home Medications Medication Instructions Recorded Confirmed Cranberry Conc/C/Bacill Coag 1 each PO DAILY 02/15/15 09/01/20 [Cranberry Tablet] LORazepam [Ativan] 0.5 mg PO DAILY PRN 02/15/15 09/01/20 Multivitamins, Thera [Theragran] 1 each PO DAILY 02/15/15 09/01/20 Omeprazole [PriLOSEC] 20 mg PO AC-BRKFST 02/15/15 09/01/20 Propranolol LA [Inderal LA] 60 mg PO DAILY 02/15/15 09/01/20 Zolpidem Tartrate [Ambien Cr] 12.5 mg PO HS PRN 02/15/15 09/01/20 Atorvastatin [Lipitor] 80 mg PO DAILY 08/30/20 09/01/20 Calcium Carbonate/Vitamin D3 1 each PO BID 08/30/20 09/01/20 [Calcium 600 mg-Vit D3 10Mcg (400 Unit)] Grapeseed 1 dose PO DAILY 08/30/20 09/01/20 [place]-3/Dha/Epa/Fish Oil [Fish Oil 1 each PO BID 08/30/20 09/01/20 500 mg Softgel] Ubidecarenone [Co Q-10] 100 mg PO DAILY 08/30/20 09/01/20 amLODIPine BESYLATE/BENAZEPRIL 1 cap PO DAILY 08/30/20 09/01/20 [Lotrel 10-20 MG] Previous Rx's Medication Instructions Recorded Cephalexin [Keflex] 500 mg PO Q12HR 10 Days #30 cap 09/01/20 Hydrocodone/Acetaminophen [[place] 1 each PO Q6HR PRN #12 tab 09/01/20 5-325] Albuterol Sulfate [Albuterol 1 puff PO Q4-6H PRN #8.5 gm 09/07/22 Sulfate Hfa] Lidocaine 5% Patch [Lidoderm 5% 1 patch TOPICAL DAILY PRN #30 patch 04/10/25 Patch] Allergies Allergy/AdvReac Type Severity Reaction Status Date / Time Sulfa (Sulfonamide Allergy Unknown Verified 04/10/25 08:09 Antibiotics) Review of Systems ROS Statement: Those systems with pertinent positive or pertinent negative responses have been documented in the HPI. ROS Other: All systems not noted in ROS Statement are negative. Past Medical History Past Medical History: GERD/Reflux, Hypertension Additional Past Medical History / Comment(s): "hx pounding heart beat", History of Any Multi-Drug Resistant Organisms: None Reported Past Surgical History: Tonsillectomy Additional Past Surgical History / Comment(s): oophorectomy Past Anesthesia/Blood Transfusion Reactions: No Reported Reaction Past Psychological History: No Psychological Hx Reported Smoking Status: Never smoker Past Alcohol Use History: Occasional Past Drug Use History: None Reported - Past Family History Mother Family Medical History: No Reported History General Exam Limitations: no limitations General appearance: alert, in no apparent distress Respiratory exam: Present: normal lung sounds bilaterally. Absent: respiratory distress, wheezes, rales, rhonchi, stridor Cardiovascular Exam: Present: regular rate, normal rhythm, normal heart sounds. Absent: systolic murmur, diastolic murmur, rubs, gallop, clicks Extremities exam: Present: normal inspection, full ROM, normal capillary refill. Absent: tenderness, pedal edema, joint swelling, calf tenderness Back exam: Present: normal inspection (No focal tenderness) Neurological exam: Present: alert, oriented X3, CN II-XII intact Skin exam: Present: warm, dry, intact, normal color. Absent: rash Course Vital Signs 04/10/25 08:04 Temperature 98.2 F Pulse Rate 102 H Respiratory 18 Rate Blood Pressure 177/93 O2 Sat by Pulse 98 Oximetry Medical Decision Making - Medical Decision Making Was pt. sent in by a medical professional or institution (, PA, [employer], urgent care, hospital, or care home...) When possible be specific @ -No Did you speak to anyone other than the patient for history (EMS, parent, family, police, friend...)? What history was obtained from this source @ -No Did you review nursing and triage notes (agree or disagree)? Why? @ -I reviewed and agree with nursing and triage notes Were old charts reviewed (outside hosp., previous admission, EMS record, old EKG, old radiological studies, urgent care reports/EKG's, care home records)? Report findings @ -No old charts were reviewed Differential Diagnosis (chest pain, altered mental status, abdominal pain women, abdominal pain men, vaginal bleeding, weakness, fever, dyspnea, syncope, headache, dizziness, GI bleed, back pain, seizure, CVA, palpatations, mental health, musculoskeletal)? @ -Differential Back Pain:Strain, zoster, cauda equina syndrome, epidural abscess, vertebral osteomyelitis, discitis, fracture, subluxation, disc herniation, DJD, spinal stenosis, dissection, AAA, pancreatitis, peptic ulcer disease, pyelonephritis, kidney stone, this is not meant to be an all-inclusive list. EKG interpreted by me (3pts min.). @ -As above X-rays interpreted by me (1pt min.). @ -Left rib AP chest x-ray interpreted by me negative for rib fractures. No acute focal consolidations. Pneumothorax. CT interpreted by me (1pt min.). @ -CTA chest negative for acute process. No evidence of aortic aneurysm, dissection or occlusion. No evidence of pulmonary embolism. Scattered colonic diverticula U/S interpreted by me (1pt. min.). @ -None done What testing was considered but not performed or refused? (CT, X-rays, U/S, labs)? Why? @ -None What meds were considered but not given or refused? Why? @ -None Did you discuss the management of the patient with other professionals (professionals i.e. , PA, [employer], lab, RT, psych nurse, social media strategist, professor of forest planning, t eacher, property and supply officer, rn field case manager)? Give summary @ -No Was smoking cessation discussed for >3mins.? @ -No Was critical care preformed (if so, how long)? @ -No Were there social determinants of health that impacted care today? How? (Homelessness, low income, unemployed, alcoholism, drug addiction, transportation, low edu. Level, literacy, decrease access to med. care, fpc, rehab)? @ -No Was there de-escalation of care discussed even if they declined (Discuss DNR or withdrawal of care, Hospice)? DNR status @ -No What co-morbidities impacted this encounter? (DM, HTN, Smoking, COPD, CAD, Cancer, CVA, ARF, Chemo, Hep., AIDS, mental health diagnosis, sleep apnea, morbid obesity)? @ -Hypertension Was patient admitted / discharged? Hospital course, mention meds given and route, prescriptions, significant lab abnormalities, going to OR and other pertinent info. @ -Discharge. 70-year-old female presented to ER for evaluation of thoracic back pain. Upon arrival patient tachycardic at 102 bpm vitals otherwise stable. Patient no signs of acute distress. Patient is tearful upon examination correlating to anxiety. Given patient's age, comorbidities and presenting symptoms, cardiac workup obtained patient is agreeable. Laboratory studies remarkable for leukocytosis 16.5 with a left shift. Patient did receive IM steroids and is taking oral prednisone prescribed by PCP. Magnesium 1.2 this was supplemented. Troponin undetectable, <0.012. D-dimer elevated at 0.70 for which CTA chest was ordered and negative for acute evidence of pulmonary embolism, aortic dissection, aneurysm or occlusion. EKG showed a sinus rhythm no acute evidence of infarct or ischemia. Patient provided with symptomatic control with IV Toradol and lidocaine patch. Upon reevaluation, patient resting comfortably on stretcher no signs of acute distress. Patient educated on today's findings. Pain believed to musculoskeletal nature. Patient discharged with a Tylenol 3 starter pack and prescribed lidocaine patches. Conservative treatment options discussed. Advise close follow-up with PCP for reevaluation. Return parameters discussed. Patient discharged in stable condition. Patient verbally expressed understanding agree with care plan. Case discussed with ED attending, Dr. Otero. Undiagnosed new problem with uncertain prognosis? @ -No Drug Therapy requiring intensive monitoring for toxicity (Heparin, Nitro, Insulin, Cardizem)? @ -No Were any procedures done? @ -No Diagnosis/symptom? @ -Back pain Acute, or Chronic, or Acute on Chronic? @ -Acute Uncomplicated (without systemic symptoms) or Complicated (systemic symptoms)? @ -Uncomplicated Side effects of treatment? @ -No Exacerbation, Progression, or Severe Exacerbation? @ -No Poses a threat to life or bodily function? How? (Chest pain, USA, ID, pneumonia, PE, COPD, DKA, ARF, appy, cholecystitis, CVA, Diverticulitis, Homicidal, Suicidal, threat to staff... and all critical care pts) @ -No - Lab Data Result diagrams: 04/10/25 08:51 04/10/25 08:51 Lab Results 04/10/25 04/10/25 04/10/25 Range/Units 08:51 08:51 08:51 WBC 16.57 H (4.50-10.00) 10*3/uL RBC 3.77 L (4.10-5.20) 10*6/uL Hgb 12.1 (12.0-15.0) g/dL Hct 35.4 L (37.2-46.3) % MCV 93.9 (80.0-97.0) fL MCH 32.1 H (27.0-32.0) pg MCHC 34.2 (32.0-37.0) g/dL Plt Count 342 (140-440) 10*3/uL MPV 8.8 L (9.5-12.2) fL Immature Gran % (Auto) 0.5 % Neutrophils % 91.8 % Lymphocytes % 4.8 % Monocytes % 2.7 % Eosinophils % 0.0 % Basophils % 0.2 % Immature Gran # 0.09 H (0.00-0.04) 10*3/uL Neutrophils # 15.21 H (1.80-7.70) 10*3/uL Lymphocytes # 0.79 L (0.90-5.00) 10*3/uL Monocytes # 0.44 (0.20-1.00) 10*3/uL Eosinophils # 0.00 L (0.04-0.35) 10*3/uL Basophils # 0.04 (0.00-0.10) 10*3/uL PT 10.3 (10.0-12.5) sec INR 0.9 (<1.2) APTT 23.3 (22.0-30.0) sec D-Dimer 0.70 H (<0.60) mg/L FEU Sodium 136 L (137-145) mmol/L Potassium 3.8 (3.5-5.1) mmol/L Chloride 98 (98-107) mmol/L Carbon Dioxide 27 (22-30) mmol/L Anion Gap 11 mmol/L BUN 13 (7-17) mg/dL Creatinine 0.48 L (0.52-1.04) mg/dL Est GFR (CKD-EPI)AfAm >90 (>60 ml/min/1.73 sqM) Est GFR (CKD-EPI)NonAf >90 (>60 ml/min/1.73 sqM) Glucose 142 H (74-99) mg/dL Calcium 10.3 H (8.4-10.2) mg/dL Magnesium 1.2 L (1.6-2.3) mg/dL Total Bilirubin 0.9 (0.2-1.3) mg/dL AST 20 (14-36) U/L ALT 16 (4-34) U/L Alkaline Phosphatase 105 (38-126) U/L Troponin I (0.000-0.034) ng/mL Total Protein 8.1 (6.3-8.2) g/dL Albumin 4.8 (3.5-5.0) g/dL 04/10/25 Range/Units 08:51 WBC (4.50-10.00) 10*3/uL RBC (4.10-5.20) 10*6/uL Hgb (12.0-15.0) g/dL Hct (37.2-46.3) % MCV (80.0-97.0) fL MCH (27.0-32.0) pg MCHC (32.0-37.0) g/dL Plt Count (140-440) 10*3/uL MPV (9.5-12.2) fL Immature Gran % (Auto) % Neutrophils % % Lymphocytes % % Monocytes % % Eosinophils % % Basophils % % Immature Gran # (0.00-0.04) 10*3/uL Neutrophils # (1.80-7.70) 10*3/uL Lymphocytes # (0.90-5.00) 10*3/uL Monocytes # (0.20-1.00) 10*3/uL Eosinophils # (0.04-0.35) 10*3/uL Basophils # (0.00-0.10) 10*3/uL PT (10.0-12.5) sec INR (<1.2) APTT (22.0-30.0) sec D-Dimer (<0.60) mg/L FEU Sodium (137-145) mmol/L Potassium (3.5-5.1) mmol/L Chloride (98-107) mmol/L Carbon Dioxide (22-30) mmol/L Anion Gap mmol/L BUN (7-17) mg/dL Creatinine (0.52-1.04) mg/dL Est GFR (CKD-EPI)AfAm (>60 ml/min/1.73 sqM) Est GFR (CKD-EPI)NonAf (>60 ml/min/1.73 sqM) Glucose (74-99) mg/dL Calcium (8.4-10.2) mg/dL Magnesium (1.6-2.3) mg/dL Total Bilirubin (0.2-1.3) mg/dL AST (14-36) U/L ALT (4-34) U/L Alkaline Phosphatase (38-126) U/L Troponin I <0.012 (0.000-0.034) ng/mL Total Protein (6.3-8.2) g/dL Albumin (3.5-5.0) g/dL - EKG Data -: EKG Interpreted by Me EKG Comments: EKG taken at 9:01 showing a sinus rhythm. No ST segment elevations or depressions. Ventricular rate 90, NM interval 178, QRS duration 102, QT/QTc 353/400. - Radiology Data Radiology results: report reviewed, image reviewed Disposition Clinical Impression: Musculoskeletal pain Disposition: HOME SELF-CARE Condition: Stable Instructions (If sedation given, give patient instructions): Musculoskeletal Pain (ED) Additional Instructions: Continue [id number]-[id number] ibuprofen and Tylenol for pain control. You may take Tylenol 3's as prescribed for pain control. Do not take [id number] Tylenol while taking these. Follow-up closely with PCP. Return to the ER for any new or worsening concerns. Prescriptions: Lidocaine 5% Patch [Lidoderm 5% Patch] 1 patch TOPICAL DAILY PRN #30 patch PRN Reason: Muscle Spasm Is patient prescribed a controlled substance at d/c from ED?: No Referrals: Angel Wasserman DO [Primary Care Provider] - 1-2 days Time of Disposition: 11:34
[2025-04-10] MEDS: LIDOCAINE 4% PATCH TOPICAL ONE (09:14)
[2025-04-10] MEDS: KETOROLAC 15 MG/ML 1 ML VIAL IVP STA (09:16)
[2025-04-10 09:21] LABS: Basophils # (A) 0.04 10*3/uL (0.00-0.10); Basophils % (A) 0.2 %; HCT 35.4 % (37.2-46.3); HGB 12.1 g/dL (12.0-15.0); Lymphocytes # (A) 0.79 10*3/uL (0.90-5.00); Lymphocytes % (A) 4.8 %; MCH 32.1 pg (27.0-32.0); MCHC 34.2 g/dL (32.0-37.0); MCV 93.9 fL (80.0-97.0); Mean Platelet Volume 8.8 fL (9.5-12.2); Monocytes # (A) 0.44 10*3/uL (0.20-1.00); Monocytes % (A) 2.7 %; Neutrophils # (A) 15.21 10*3/uL (1.80-7.70); Neutrophils % (A) 91.8 %; Platelet Count 342 10*3/uL (140-440); RBC 3.77 10*6/uL (4.10-5.20); WBC 16.57 10*3/uL (4.50-10.00)
[2025-04-10 09:32] LABS: ALT 16 U/L (4-34); AST 20 U/L (14-36); African American GFR (CKD) >90 (>60 ml/min/1.73 sqM); Albumin 4.8 g/dL (3.5-5.0); Alkaline Phosphatase 105 U/L (38-126); Anion Gap 11 mmol/L; Blood Urea Nitrogen 13 mg/dL (7-17); Calcium 10.3 mg/dL (8.4-10.2); Carbon Dioxide 27 mmol/L (22-30); Chloride 98 mmol/L (98-107); Glucose 142 mg/dL (74-99); Magnesium 1.2 mg/dL (1.6-2.3); Non-African American GFR(CKD) >90 (>60 ml/min/1.73 sqM); Potassium 3.8 mmol/L (3.5-5.1); Sodium 136 mmol/L (137-145); Total Bilirubin 0.9 mg/dL (0.2-1.3); Total Protein 8.1 g/dL (6.3-8.2)
--- NOTE | 2025-04-10 09:35 | XR ---
EXAMINATION TYPE: XR ribs LT w pa chest xray DATE OF EXAM: 04/10/2025 9:28 AM COMPARISON: 09/07/2022 CLINICAL INDICATION: Female, 70 years old with history of pain; PHH, pain TECHNIQUE: XR ribs LT w pa chest xray; Frontal and oblique views of the ribs with frontal chest radio graph. FINDINGS: The ribs have a normal appearance. No evidence of fracture. Overall, the lungs are clear. The cardiac silhouette is normal in size. The remaining osseous structures are intact. IMPRESSION: No acute osseous pathology. [facility], , 04/10/2025 9:33 AM
[2025-04-10 09:41] LABS: INR 0.9 (<1.2); Partial Thromboplastin Time 23.3 sec (22.0-30.0); Prothrombin Time 10.3 sec (10.0-12.5)
--- NOTE | 2025-04-10 10:52 | CT ---
EXAMINATION TYPE: CT chest angio for PE DATE OF EXAM: 04/10/2025 10:17 AM COMPARISON: Plain CLINICAL INDICATION: Female, 70 years old with history of thoracis back pain; LEFT UPPER BACK PAIN, S OB TECHNIQUE/CONTRAST: CTA scan of the thorax is performed with IV Contrast, patient injected with 70 mL of Isovue 370, MIP images are created and reviewed these are created on a separate workstation.. CT DLP: 346.3 mGycm, Automated exposure control for dose reduction was used. FINDINGS: Lungs/Pleura: No evidence of focal consolidation, pleural effusion or pneumothorax. Airway: Large airways are patent. Heart: Size within normal limits. No significant coronary artery calcifications. Vasculature: For bolus timing limits evaluation from the pulmonary vasculature. No evidence for intra mural hematoma on noncontrast imaging. No evidence of intimal flap to suggest dissection. No aneurysm identified. Scattered atherosclerotic disease. There is no evidence for a filling defect within the pulmonary vasculature to suggest acute pulmonary embolism. The pulmonary artery is of normal size. Mediastinum: No gross evidence of adenopathy. Musculoskeletal: No acute osseous abnormalities Soft Tissues/lymph nodes: Unremarkable. Lower neck: No significant findings. Upper Abdomen: Scattered colonic diverticula. IMPRESSION: 1. No acute process. No evidence for aortic aneurysm, dissection or occlusion. No evidence for pulmon brian embolus in the limited central pulmonary vasculature. 2. Scattered colonic diverticula. [facility], , 04/10/2025 10:50 AM
[2025-04-10] MEDS: ACET/COD 300 MG/30 MG STARTER PACK 6 TAB BTL PO STA (11:49)
[2025-04-10] MEDS: MAGNESIUM OXIDE 400 MG TAB PO STA (11:59)
== END 2025-04-10 11:59 | disposition home or self-care (01) ==
LOC: EC 08:03
DX: M54.9 Dorsalgia, unspecified (principal); R06.02 Shortness of breath; Z88.2 Allergy status to sulfonamides
CPT/HCPCS: 36415; 93005; 85379; 80053; 83735; 84484; 85025; 85610; 85730; 71101; 71275; 99284; 96374; J1885; Q9967